=== PATIENT | female | born 1985 | race Two or more races ===

== ENCOUNTER → 2019-03-12 | Outpatient (CLI) | payer OTHER | END | disposition home or self-care (01) | LOC: PRENATAL 16:00 | DX: O35.3XX1 Maternal care for (suspected) damage to fetus from viral disease in mother, fetus 1 (principal) ==

== ENCOUNTER 2019-07-30 05:48 | Inpatient (IN) | payer OTHER ==
[~2019-07-30] VITALS: Ht 162.6 cm; Wt 74.4 kg
[2019-07-30] MEDS ORDERED: PRENATAL CAPLE1 EAC1 PO (10:22)
== END 2019-08-02 15:48 | disposition home or self-care (01) | DRG 787 ==
LOC: SURG-SUITE 05:48 → LDR 05:48 → O/R 18:53 → OB/GYN 20:29 → SURG-SUITE 22:09
PROVIDERS: ADMIT Specialist
PROC: 4A1HXCZ Monitoring of Products of Conception, Cardiac Rate, External Approach (ICD-10-PCS; 2019-07-30)
PROC: 3E033VJ Introduction of Other Hormone into Peripheral Vein, Percutaneous Approach (ICD-10-PCS; 2019-07-30)
PROC: 10D00Z1 Extraction of Products of Conception, Low, Open Approach (ICD-10-PCS; principal; 2019-07-30 18:00)
DX: O64.5XX0 Obstructed labor due to compound presentation, not applicable or unspecified (principal); O98.82 Other maternal infectious and parasitic diseases complicating childbirth; O65.4 Obstructed labor due to fetopelvic disproportion, unspecified; B95.1 Streptococcus, group B, as the cause of diseases classified elsewhere; Z37.0 Single live birth; Z3A.39 39 weeks gestation of pregnancy

== ENCOUNTER 2020-04-22 10:57 | Outpatient (CLI) | payer OTHER ==
[~2020-04-22 10:57] MED LIST: PRENATAL CAPLE1 EAC1 PO
== END 2020-04-22 11:07 | disposition home or self-care (01) ==
LOC: RAD 10:57
PROVIDERS: ATTEND General Practice
DX: R05 Cough (principal)